=== PATIENT | male | born 1955 | race Asian ===

== ENCOUNTER 2024-10-16 20:42 | Emergency (ER) | payer OTHER, MEDICAID ==
[~2024-10-16] VITALS: Ht 149.9 cm; Wt 63.6 kg
[2024-10-16 21:04] VITALS: TEMP 98
[2024-10-16 22:47] LABS: APPEARANCE,URINE CLEAR (CLEAR); GLUCOSE, URINE (UA) NEGATIVE (NEGATIVE); LEUKOCYTE ESTERASE ,URINE NEGATIVE (NEGATIVE); NITRATE,URINE NEGATIVE (NEGATIVE); OCCULT BLOOD,URINE NEGATIVE (NEGATIVE); SPECIFIC GRAVITIY, URINE 1.018 (1.003-1.030)
[2024-10-16] MEDS: KETOROLAC TROMETHAMINE 30 MG/ML VIAL IM ONE (23:03)
[2024-10-16] MEDS: LIDOCAINE 5% TRANSDERMAL PATCH TD ONE (23:03)
[2024-10-16] MEDS: ACETAMINOPHEN 500 MG TABLET PO ONE (23:03)
[2024-10-17] MEDS ORDERED: METH-812 PO (00:13)
[2024-10-17 00:17] VITALS: BP 136/74; PULSE 88; RESP 18; O2SAT 97
== END 2024-10-17 00:18 | disposition home or self-care (01) ==
LOC: EMS 21:10
DX: M54.42 Lumbago with sciatica, left side (principal)
CPT/HCPCS: 99284; 81003; 96372; J1885